=== PATIENT | female | born 1965 | race Caucasian/White ===

== ENCOUNTER 2017-11-23 09:45 | Emergency (ER) | payer OTHER ==
[~2017-11-23] VITALS: Ht 170.2 cm; Wt 85.0 kg
[2017-11-23 09:50] VITALS: PULSE 94; RESP 16; TEMP 98; O2SAT 99
[2017-11-23] MEDS ORDERED: SODIUM CHLOR 0.9% 1000 ML INJ 1,000 ML IV SCH (12:47)
--- NOTE | 2017-11-23 12:53 | PD ---
HPI Chief Complaint: GI Complaint Time Seen by Provider: 12:21 Travel History International Travel<30 days: No Contact w/Intl Traveler<30days: No Traveled to known affect area: No History of Present Illness HPI 32-year-old female presents the ED for evaluation of 12 hour history of right upper quadrant abdominal pain, nausea, vomiting. Onset last night after eating dinner. Rated 7/10, waxing and waning. No alleviating or exacerbating factors reported. Patient endorses oral temperature 100.1 last week. She denies melena , hematochezia, constipation or diarrhea. She denies alcohol use. She states that she has a history of gallstones. She states that she has a preoperative appointment with a general surgeon at the end of the month. She denies chronic health problems. No treatment attempted at home. PFSH Past Medical History Thyroid Disease: Yes Influenza Vaccination: No ?: Not Past Surgical History Abdominal Surgery: Yes (HERNIA REPAIR) Social History Alcohol Use: No Tobacco Use: No Substance Use: No Allergies-Medications (Allergen,Severity, Reaction): Coded Allergies: codeine (Verified Allergy, Mild, NAUSEA, 11/23/17) Review of Systems Except as stated in HPI: all other systems reviewed are Neg Physical Exam Narrative GENERAL: Well-nourished, nontoxic-appearing white female no acute distress. SKIN: Focused skin assessment warm/dry. HEAD: Atraumatic. Normocephalic. EYES: Pupils equal and round. No scleral icterus. No injection or drainage. ENT: No nasal bleeding or discharge. Mucous membranes pink and moist. NECK: Trachea midline. No JVD. CARDIOVASCULAR: Regular rate and rhythm. No murmur appreciated. RESPIRATORY: No accessory muscle use. Clear to auscultation. Breath sounds equal bilaterally. GASTROINTESTINAL: Abdomen soft, nondistended. Hepatic and splenic margins not palpable. Tender to palpation in the right upper quadrant and epigastric region. Active bowel sounds. MUSCULOSKELETAL: No obvious deformities. No clubbing. No cyanosis. No edema. NEUROLOGICAL: Awake and alert. No obvious cranial nerve deficits. Motor grossly within normal limits. Normal speech. PSYCHIATRIC: Appropriate mood and affect; insight and judgment normal. Data Data Last Documented VS Vital Signs Date Time Temp Pulse Resp B/P (MAP) Pulse Ox O2 Delivery O2 Flow Rate FiO2 11/23/17 15:25 65 16 133/ 96 Room Air 11/23/17 09:50 98.0 Orders Orders Complete Blood Count With Diff (11/23/17 12:47) Comprehensive Metabolic Panel (11/23/17 12:47) Lipase (11/23/17 12:47) Lactic Acid (11/23/17 12:47) Prothrombin Time / Inr (Pt) (11/23/17 12:47) Act Partial Throm Time (Ptt) (11/23/17 12:47) Urinalysis - C+S If Indicated (11/23/17 12:47) Us Abdomen Gallbladder (11/23/17 ) Iv Access Insert/Monitor (11/23/17 12:47) Ecg Monitoring (11/23/17 12:47) Oximetry (11/23/17 12:47) NPO (11/23/17 12:47) Morphine Inj (Morphine Inj) (11/23/17 13:00) Sodium Chlor 0.9% 1000 Ml Inj (Ns 1000 M (11/23/17 12:47) Sodium Chloride 0.9% Flush (Ns Flush) (11/23/17 13:00) Ondansetron Odt (Zofran Odt) (11/23/17 13:00) Ed Discharge Order (11/23/17 15:11) Labs Laboratory Tests Test 11/23/17 13:09 11/23/17 14:08 White Blood Count 11.4 TH/MM3 Red Blood Count 4.38 MIL/MM3 Hemoglobin 11.8 GM/DL Hematocrit 36.7 % Mean Corpuscular Volume 83.8 FL Mean Corpuscular Hemoglobin 26.9 PG Mean Corpuscular Hemoglobin Concent 32.1 % Red Cell Distribution Width 15.8 % Platelet Count 350 TH/MM3 Mean Platelet Volume 8.2 FL Neutrophils (%) (Auto) 74.1 % Lymphocytes (%) (Auto) 18.6 % Monocytes (%) (Auto) 5.2 % Eosinophils (%) (Auto) 1.5 % Basophils (%) (Auto) 0.6 % Neutrophils # (Auto) 8.4 TH/MM3 Lymphocytes # (Auto) 2.1 TH/MM3 Monocytes # (Auto) 0.6 TH/MM3 Eosinophils # (Auto) 0.2 TH/MM3 Basophils # (Auto) 0.1 TH/MM3 CBC Comment DIFF FINAL Differential Comment Prothrombin Time 9.7 SEC Prothromb Time International Ratio 1.0 RATIO Activated Partial Thromboplast Time 24.9 SEC Blood Urea Nitrogen 15 MG/DL Creatinine 0.76 MG/DL Random Glucose 83 MG/DL Total Protein 7.8 GM/DL Albumin 3.8 GM/DL Calcium Level 8.9 MG/DL Alkaline Phosphatase 155 U/L Aspartate Amino Transf (AST/SGOT) 21 U/L Alanine Aminotransferase (ALT/SGPT) 41 U/L Total Bilirubin 0.2 MG/DL Sodium Level 140 MEQ/L Potassium Level 3.5 MEQ/L Chloride Level 106 MEQ/L Carbon Dioxide Level 25.7 MEQ/L Anion Gap 8 MEQ/L Estimat Glomerular Filtration Rate 80 ML/MIN Lactic Acid Level 0.8 mmol/L Lipase 124 U/L Urine Color Straw Urine Turbidity CLEAR Urine pH 7.0 Urine Specific [place] 1.008 Urine Protein NEG mg/dL Urine Glucose (UA) NEG mg/dL Urine Ketones NEG mg/dL Urine Occult Blood NEG Urine Nitrite NEG Urine Bilirubin NEG Urine Urobilinogen LESS THAN 2 mg/dL Urine Leukocyte Esterase NEG Urine WBC LESS THAN 1 /hpf Urine Squamous Epithelial Cells 1 /hpf Urine Bacteria RARE /hpf Microscopic Urinalysis Comment CULT NOT INDICATED MDM Medical Decision Making Medical Screen Exam Complete: Yes Emergency Medical Condition: Yes Differential Diagnosis Choledocholithiasis versus cholecystitis versus GERD versus pancreatitis versus other Narrative Course 32-year-old female with PMH of gallstones presents the ED for evaluation of 12 hour history of right upper quadrant abdominal pain, nausea, vomiting. Waxing and waning, currently rated 6/10. Patient reports last episode of vomiting was a few nights ago. She states that she has elective cholecystectomy scheduled early next month. Vitals reviewed. Physical exam reveals some tenderness in the right upper quadrant but is otherwise unremarkable. IV was established. Patient was ministered 1 L normal saline, 4 mg Zofran 4 mg morphine IV. CBC: WBC 11.4, hemoglobin 11.8. Coags: INR 1.0. CMP: BUN 15, creatinine 0.76. Bilirubin 0.2. AST 21, ALT 41. Lactic acid 0.8. Lipase 124 UA: No culture indicated. Ultrasound gallbladder reveals cholelithiasis without definitive sonographic evidence for acute cholecystitis. On recheck the patient reports improvement of her symptoms. I discussed the results of the workup, recommended that the patient follow through with her plan for elective cholecystectomy. She is instructed to call her surgeon tomorrow for follow-up, return for worsening symptoms. She indicated understanding of instructions and is agreeable to care plan. The patient is stable and discharged home. Diagnosis Primary Impression: Cholelithiasis Qualified Codes: K80.20 - Calculus of gallbladder without cholecystitis without obstruction Referrals: General Surgeon Patient Instructions: Diet for Stomach Ulcers and Gastritis (ED), General Instructions Additional Instructions: Rest, hydrate. Avoid fatty meals as this can worsen gallbladder pain. Follow-up with the general surgeon as planned. Return to the ED for worsening symptoms or any urgent or emergent medical condition. Disposition: 01 DISCHARGE HOME Condition: Stable Prudence Tsai Nov 23, 2017 12:53
[2017-11-23] MEDS ORDERED: MORPHINE SULFATE 4 MG/ML INJ IV PUSH ONE (13:00)
[2017-11-23] MEDS ORDERED: SODIUM CHLORIDE 0.9% FLUSH 10 ML FLUSH IV FLUSH PRN (13:00)
[2017-11-23] MEDS ORDERED: ONDANSETRON ODT 4 MG TAB PO ONE (13:00)
[2017-11-23 13:24] LABS: AUTOMATED NEUTROPHIL # 8.4 TH/MM3 (1.8-7.7); BASOPHIL # 0.1 TH/MM3 (0-0.2); BASOPHIL % 0.6 % (0.0-2.0); EOSINOPHIL # 0.2 TH/MM3 (0-0.4); EOSINOPHIL % 1.5 % (0.0-4.0); HEMATOCRIT 36.7 % (35.0-46.0); HEMOGLOBIN 11.8 GM/DL (11.6-15.3); LYMPH % 18.6 % (9.0-44.0); LYMPHOCYTE # 2.1 TH/MM3 (1.0-4.8); MEAN CELL VOLUME 83.8 FL (80.0-100.0); MEAN CORPUSCULAR HEMOGLOBIN 26.9 PG (27.0-34.0); MEAN CORPUSCULAR HGB CONC 32.1 % (32.0-36.0); MEAN PLATELET VOLUME 8.2 FL (7.0-11.0); MONO % 5.2 % (0.0-8.0); MONOCYTE # 0.6 TH/MM3 (0-0.9); NEUT % 74.1 % (16.0-70.0); PLATELET COUNT 350 TH/MM3 (150-450); RED BLOOD COUNT 4.38 MIL/MM3 (4.00-5.30); RED CELL DISTRIBUTION WIDTH 15.8 % (11.6-17.2); WHITE BLOOD COUNT 11.4 TH/MM3 (4.0-11.0)
[2017-11-23 13:36] LABS: PROTHROMBIN TIME - PATIENT 9.7 SEC (9.8-11.6)
[2017-11-23 13:48] LABS: ALBUMIN 3.8 GM/DL (3.4-5.0); ALT (GPT) 41 U/L (10-53); AST (GOT) 21 U/L (15-37); BICARBONATE 25.7 MEQ/L (21.0-32.0); BLOOD UREA NITROGEN 15 MG/DL (7-18); CALCIUM 8.9 MG/DL (8.5-10.1); CHLORIDE 106 MEQ/L (98-107); CREATININE 0.76 MG/DL (0.50-1.00); GLOMERULAR FILTRATION RATE 80 ML/MIN (>89); GLUCOSE,RANDOM 83 MG/DL (74-106); SODIUM (NA) 140 MEQ/L (136-145)
[2017-11-23 13:51] LABS: ALKALINE PHOSPHATASE 155 U/L (45-117); TOTAL BILIRUBIN ADULT 0.2 MG/DL (0.2-1.0); TOTAL PROTEIN 7.8 GM/DL (6.4-8.2)
--- NOTE | 2017-11-23 14:27 | RADRPT ---
EXAM DATE: 11/23/2017 1:55 PM EDT AGE/SEX: 52 years / Female INDICATIONS: Previously diagnosed gallstones. Right upper quadrant pain. CLINICAL DATA: This is the patient's initial encounter. Patient reports that signs and/or symptoms h ave been present for 2 days and indicates a pain score of 7/10. MEDICAL/SURGICAL HISTORY: Hiatal hernia. . COMPARISON: No prior exams available for comparison. MEASUREMENTS: Liver:__ 15.1 cm. Common Bile Duct:__ 6mm. FINDINGS: Liver: Normal echotexture without focal lesion or ductal dilatation. Portal Vein: Hepatopedal flow seen in portal vein. Common Duct: No intraluminal mass or stone visualized. Gallbladder: Demonstrates no wall thickening or pericholecystic fluid. Multiple shadowing gallstones visualized. Pancreas: Not well visualized. Right Kidney: Normal echotexture and cortical thickness. No mass or hydronephrosis. Other: None. CONCLUSION: 1. Cholelithiasis without definitive sonographic evidence for acute cholecystitis. Electronically signed by: Jesse Beard MD 11/23/2017 2:26 PM EDT
[2017-11-23 15:13] LABS: BACTERIA, URINE RARE /hpf; BILIRUBIN, URINE NEG (NEG); BLOOD, URINE NEG (NEG); GLUCOSE,URINE NEG (NEG); KETONE, URINE NEG (NEG); NITRITE,URINE NEG (NEG); SQUAMOUS EPITHELIAL CELL URINE 1 /hpf (0-5); URINE COLOR Straw (YELLW/STRAW); URINE LEUKOCYTE ESTERASE NEG (NEG)
[2017-11-23 15:25] VITALS: BP_SYST 133; PULSE 65; RESP 16; O2SAT 96
== END 2017-11-23 15:58 | disposition home or self-care (01) ==
LOC: NEPD 09:45
DX: K80.20 Calculus of gallbladder without cholecystitis without obstruction (principal); R10.11 Right upper quadrant pain; R11.2 Nausea with vomiting, unspecified; E07.9 Disorder of thyroid, unspecified; Z88.5 Allergy status to narcotic agent
CPT/HCPCS: 76705; 80053; 81001; 83605; 83690; 85025; 85610; 85730; 96374; 99284; J2270; J7030

== ENCOUNTER 2018-01-14 18:01 | Observation (INO) ==
[2018-01-14] MEDS ORDERED: Acetaminophen 325 MG Tablet PO ONE (19:24)
[2018-01-14] MEDS ORDERED: Sod Chloride 0.9% Inj 400 ML IV.SIG SCH (19:30)
[2018-01-14] MEDS ORDERED: Sod Chloride 0.9% Inj 1,000 ML IV.SIG SCH ×2 (19:30)
[2018-01-14 19:42] LABS: Baso # (Auto) 0.1 th/mm3 (0.0-0.2); Baso % (Auto) 0.9 % (0.0-2.0); Eos # (Auto) 0.2 th/mm3 (0.0-0.4); Eos % (Auto) 2.6 % (0.0-4.0); Hematocrit 37.9 % (35.0-46.0); Hemoglobin 12.8 gm/dL (11.6-15.3); Lymph # (Auto) 1.6 th/mm3 (1.0-4.8); Lymph % (Auto) 18.8 % (9.0-44.0); Mean Corpuscular HGB Conc 33.7 % (32.0-36.0); Mean Corpuscular Hemoglobin 28.5 pg (27.0-34.0); Mean Corpuscular Volume 84.6 fL (80.0-100.0); Mean Platelet Volume 7.5 fL (7.0-11.0); Mono # (Auto) 0.8 th/mm3 (0.0-0.9); Mono % (Auto) 9.6 % (0.0-8.0); Neut # (Auto) 5.7 th/mm3 (1.8-7.7); Neut % (Auto) 68.1 % (16.0-70.0); Platelet Count 345 th/mm3 (150-450); Red Blood Count 4.48 mil/mm3 (4.00-5.30); Red Cell Distribution Width 15.4 % (11.6-17.2); White Blood Count 8.4 th/mm3 (4.0-11.0)
[2018-01-14 19:46] LABS: Activated Partial Thrombo Time 24.7 sec (24.3-30.1); Prothrombin Time 9.9 sec (9.8-11.6)
[2018-01-14 19:57] LABS: Albumin 3.8 g/dL (3.4-5.0); Anion Gap 9 meq/L (5-15); Aspartate Aminotransferase 25 U/L (15-37); Blood Urea Nitrogen 21 mg/dL (7-18); Calcium 8.9 mg/dL (8.5-10.1); Carbon Dioxide 23.4 meq/L (21.0-32.0); Chloride 106 meq/L (98-107); Glomerular Filtration Rate 56 mL/min (>89); Glucose,Random 104 mg/dL (74-106); Magnesium 2.1 mg/dL (1.5-2.5); Potassium 3.7 meq/L (3.5-5.1); Sodium 138 meq/L (136-145)
[2018-01-14 20:02] LABS: Alanine Aminotransferase 43 U/L (10-53); Alkaline Phosphatase 182 U/L (45-117); Total Protein 7.9 g/dL (6.4-8.2)
--- NOTE | 2018-01-14 20:02 | XR ---
EXAM DATE: 01/14/2018 7:54 PM EDT AGE/SEX: 52 years / Female INDICATIONS: Fever returning from 1 week ago with cough for one week. CLINICAL DATA: This is the patient's sequela encounter. Patient reports that signs and symptoms have been present for 3 weeks and indicates a pain score of 0/10. MEDICAL/SURGICAL HISTORY: None. None. [place] [facility] [place]. . FINDINGS: A single AP view of the chest demonstrates the lungs to be symmetrically aerated without evidence of mass, infiltrate or effusion. The cardiomediastinal contours are unremarkable. Osseous structures a re intact with mild scoliosis. Multiple surgical clips are again noted projected over the lower neck and upper mediastinum. CONCLUSION: No acute cardiopulmonary disease. There is no evidence of pneumonia. Electronically signed by: Reji Zepeda MD 01/14/2018 8:01 PM EDT
[2018-01-14 20:27] LABS: Bacteria,Urine Rare /hpf; Bilirubin,Urine Negative (Negative); Clarity,Urine Hazy (Clear); Color,Urine Yellow (Yellw/Straw); Glucose,Urine (UA) Negative (Negative); Leukocyte Esterase,Urine Small (Negative); Nitrite,Urine Negative (Negative); Specific Gravity,Urine 1.024 (1.002-1.035); Squamous Epithelial Cell,Urine 1 /hpf (0-5)
--- NOTE | 2018-01-14 20:39 | ED ---
HPI General Chief Complaint: Respiratory Symptoms Stated Complaint: respiratory Time Seen by Provider: 01/14/18 19:12 Source: patient, RN notes reviewed and old records reviewed Mode of arrival: ambulatory Limitations: no limitations History of Present Illness HPI Narrative: The patient is a 52-year-old female status post cholecystectomy on December 28 presenting with complaint of persistent cough for 1-1/2 weeks and on and off fevers. Fever today was 101.4 she went to an urgent care they checked it again was 101.8 and they advised to come to the emergency department when she was found to have a temp of 100.4 persistent nonproductive cough. The patient was seen here for fever and fatigue on 01/02/2018 after her surgery by Dr. Erickson and had a workup for a temperature of 102.7 that was unremarkable. She reports fatigue cough no congestion no nausea vomiting abdominal pain dysuria diarrhea or flank pain. She was discharged on Augmentin which she is currently taken for diagnosis of fever of unknown origin. MD Complaint: fever, cough and sore throat Onset (ago): week(s) (1.5) Duration: constant Severity: moderate Relieving factors: NSAID Able to tolerate fluids by mouth: Yes Associated symptoms: fever, chills and sore throat Treatments prior to arrival: ibuprofen Related Data Home Medications Medication Instructions Recorded Confirmed amitriptyline 75 mg PO DAILY 12/24/17 01/14/18 levothyroxine 175 mcg PO DAILY 12/24/17 01/14/18 paroxetine HCl 10 mg PO HS 12/24/17 01/14/18 ketorolac 10 mg PO Q6H PRN 01/02/18 01/14/18 Previous Rx's Medication Instructions Recorded amoxicillin-pot clavulanate 1 tab PO Q12H #20 tab 01/02/18 [Augmentin] ondansetron HCl [Zofran] 4 mg PO Q6H PRN #15 tab 01/02/18 Allergies Allergy/AdvReac Type Severity Reaction Status Date / Time codeine Allergy Mild NAUSEA Verified 01/14/18 18:29 Iodinated Contrast- Oral and AdvReac Nausea/Vomi Verified 01/14/18 18:29 IV Dye ting [Contrast] Review of Systems ROS: all other systems reviewed are negative [facility] Medical History Medical History Gallstone (Acute) Hx of thyroidectomy (Acute) Hypothyroidism (Acute) Migraines (Acute) Surgical History Surgical History History of esophagogastroduodenoscopy (EGD) (Acute) History of umbilical hernia repair (Acute) Hx of colonoscopy with polypectomy (Acute) Social History Social History Substance History: No History of Abuse Second Hand Smoke Exposure: No Smoking Status: Never smoker How Often Do You Have a Drink Containing Alcohol: Never Recent Travel in [facility] within the Last 8 Weeks: No Recent Out of Country Travel within the Last 8 Weeks: No Immunization History Tetanus Immunization: <5 Years Hx Influenza Vaccine This Season: No Exam Narrative Exam Narrative: GENERAL: Alert and oriented in no distress not appearing toxic SKIN: Focused skin assessment warm/dry. HEAD: Atraumatic. Normocephalic. EYES: Pupils equal and round. No scleral icterus. No injection or drainage. ENT: No nasal bleeding or discharge. Mucous membranes pink and moist. NECK: Trachea midline. No JVD. CARDIOVASCULAR: tachycardia w/ regular rhythm. No murmur appreciated. RESPIRATORY: No accessory muscle use. Clear to auscultation. Breath sounds equal bilaterally. GASTROINTESTINAL: Abdomen soft, non-tender, nondistended. Hepatic and splenic margins not palpable. MUSCULOSKELETAL: No obvious deformities. No clubbing. No cyanosis. No edema. NEUROLOGICAL: Awake and alert. No obvious cranial nerve deficits. Motor grossly within normal limits. Normal speech. PSYCHIATRIC: Appropriate mood and affect; insight and judgment normal. Course Hospital Course: Patient's the patient met SIRS criteria on arrival with a pulse of 111 temperature 100.2. She has a lactic acidosis of 2.1 without WBC elevation or bandemia. Mild BUN elevation of 21 with a creatinine of 1.03 liver enzymes mildly elevated with an alk phos of 182. Serologies were negative for influenza. Chest x-ray was unremarkable. She did receive cefepime and fluids per sepsis protocol repeat temperature at 8:50 PM was 98.8 with stable blood pressure and resolution of her tachycardia with a resting heart rate of 92 bpm at this time. Reevaluation(s) Reevaluation #1: Resting comfortably no distress afebrile and non-tachycardic not appearing septic. Mentation intact capillary refill within normal limits. Time: 20:50 Initial Documented Vital Signs Temperature 100.2 F H 01/14/18 18:16 Pulse Rate 125 H 01/14/18 18:16 Respiratory Rate 20 01/14/18 18:16 Blood Pressure 118/73 01/14/18 18:16 Pulse Oximetry 99 01/14/18 18:16 Last Documented Vital Signs Temperature 98.8 F 01/14/18 20:49 Pulse Rate 94 H 01/14/18 20:49 Respiratory Rate 16 01/14/18 20:49 Blood Pressure 158/59 H 01/14/18 20:49 Pulse Oximetry 100 01/14/18 20:49 Critical Care Time Critical Care Time: Yes Total Critical Care Time: 30 Attestation: Aggregate critical care time was 30 minutes. Time to perform other separately billable procedures was not included in the critical care time. My time did not include minutes spent treating any other patients simultaneously or on activities that did not directly contribute to the patient's treatment. The services I provided to this patient were to treat and/or prevent clinically significant deterioration that could result in: Respiratory failure, permanent disability, I provided critical care services requiring my management, as noted below: Chart data review, documentation time, medication orders and management, vital sign assessments/reviewing monitor data, ordering and reviewing lab tests, ordering and interpreting/reviewing x-rays and diagnostic studies, care of the patient and discussion of the patient with the admitting physicians. Medical Decision Making MDM Narrative Medical decision making narrative: Patient with fever of unknown origin and findings suggestive of sepsis. Blood cultures have been obtained she was started on broad-spectrum antibiotics for coverage of possible upper respiratory pathogen as well as intra-abdominal. She did not have any abdominal pain or discomfort. She did have a recent CT of the abdomen and pelvis was also unremarkable. Will admit for further evaluation of her febrile disease. Possibly viral. We started the patient on cefepime since she was inpatient in the beginning of the month for her surgery and was seen here again to cover for possible hospital -acquired pneumonia. She was already on Augmentin as an outpatient with out any relief of her symptoms. Medical Screen Exam Complete: Yes Emergency Medical Condition: Yes Lab Data Lab results reviewed: Yes I reviewed the patient's lab results. Result diagrams: 01/14/18 19:30 01/14/18 19:30 Lab Results 01/14/18 01/14/18 01/14/18 Range/Units 19:30 19:30 19:30 WBC 8.4 (4.0-11.0) th/mm3 RBC 4.48 (4.00-5.30) mil/mm3 Hgb 12.8 (11.6-15.3) gm/dL Hct 37.9 (35.0-46.0) % MCV 84.6 (80.0-100.0) fL MCH 28.5 (27.0-34.0) pg MCHC 33.7 (32.0-36.0) % RDW 15.4 (11.6-17.2) % Plt Count 345 (150-450) th/mm3 MPV 7.5 (7.0-11.0) fL Neut % (Auto) 68.1 (16.0-70.0) % Lymph % (Auto) 18.8 (9.0-44.0) % Ellis % (Auto) 9.6 H (0.0-8.0) % Eos % (Auto) 2.6 (0.0-4.0) % Baso % (Auto) 0.9 (0.0-2.0) % Neut # (Auto) 5.7 (1.8-7.7) th/mm3 Lymph # (Auto) 1.6 (1.0-4.8) th/mm3 Ellis # (Auto) 0.8 (0.0-0.9) th/mm3 Eos # (Auto) 0.2 (0.0-0.4) th/mm3 Baso # (Auto) 0.1 (0.0-0.2) th/mm3 WBC Differential . Differential Comment Auto diff final PT 9.9 (9.8-11.6) sec INR 1.0 Ratio APTT 24.7 (24.3-30.1) sec Sodium 138 (136-145) meq/L Potassium 3.7 (3.5-5.1) meq/L Chloride 106 (98-107) meq/L Carbon Dioxide 23.4 (21.0-32.0) meq/L Anion Gap 9 (5-15) meq/L BUN 21 H (7-18) mg/dL Creatinine 1.03 H (0.50-1.00) mg/dL Estimated GFR 56 L (>89) mL/min Random Glucose 104 (74-106) mg/dL Lactic Acid (0.4-2.0) mmol/L Calcium 8.9 (8.5-10.1) mg/dL Magnesium 2.1 (1.5-2.5) mg/dL Total Bilirubin 0.2 (0.2-1.0) mg/dL AST 25 (15-37) U/L ALT 43 (10-53) U/L Alkaline Phosphatase 182 H (45-117) U/L Troponin I Less than 0.02 L (0.02-0.05) ng/mL Total Protein 7.9 (6.4-8.2) g/dL Albumin 3.8 (3.4-5.0) g/dL Urine Color (Yellw/Straw) Urine Clarity (Clear) Urine pH (5.0-8.5) Ur Specific [place] (1.002-1.035) Urine Protein (Neg-Trace) mg/dL Urine Glucose (UA) (Negative) mg/dL Urine Ketones (Negative) mg/dL Urine Occult Blood (Negative) Urine Nitrate (Negative) Urine Bilirubin (Negative) Urine Urobilinogen (Less than 2) mg/dL Ur Leukocyte Esterase (Negative) Urine WBC (0-5) /hpf Ur Squamous Epith Cells (0-5) /hpf Urine Bacteria (None) /hpf Micro UA Comment Urine Culture Comments 01/14/18 01/14/18 Range/Units 19:30 19:50 WBC (4.0-11.0) th/mm3 RBC (4.00-5.30) mil/mm3 Hgb (11.6-15.3) gm/dL Hct (35.0-46.0) % MCV (80.0-100.0) fL MCH (27.0-34.0) pg MCHC (32.0-36.0) % RDW (11.6-17.2) % Plt Count (150-450) th/mm3 MPV (7.0-11.0) fL Neut % (Auto) (16.0-70.0) % Lymph % (Auto) (9.0-44.0) % Ellis % (Auto) (0.0-8.0) % Eos % (Auto) (0.0-4.0) % Baso % (Auto) (0.0-2.0) % Neut # (Auto) (1.8-7.7) th/mm3 Lymph # (Auto) (1.0-4.8) th/mm3 Ellis # (Auto) (0.0-0.9) th/mm3 Eos # (Auto) (0.0-0.4) th/mm3 Baso # (Auto) (0.0-0.2) th/mm3 WBC Differential Differential Comment PT (9.8-11.6) sec INR Ratio APTT (24.3-30.1) sec Sodium (136-145) meq/L Potassium (3.5-5.1) meq/L Chloride (98-107) meq/L Carbon Dioxide (21.0-32.0) meq/L Anion Gap (5-15) meq/L BUN (7-18) mg/dL Creatinine (0.50-1.00) mg/dL Estimated GFR (>89) mL/min Random Glucose (74-106) mg/dL Lactic Acid 2.1 H (0.4-2.0) mmol/L Calcium (8.5-10.1) mg/dL Magnesium (1.5-2.5) mg/dL Total Bilirubin (0.2-1.0) mg/dL AST (15-37) U/L ALT (10-53) U/L Alkaline Phosphatase (45-117) U/L Troponin I (0.02-0.05) ng/mL Total Protein (6.4-8.2) g/dL Albumin (3.4-5.0) g/dL Urine Color Yellow (Yellw/Straw) Urine Clarity Hazy H (Clear) Urine pH 5.0 (5.0-8.5) Ur Specific [place] 1.024 (1.002-1.035) Urine Protein Negative (Neg-Trace) mg/dL Urine Glucose (UA) Negative (Negative) mg/dL Urine Ketones Negative (Negative) mg/dL Urine Occult Blood Negative (Negative) Urine Nitrate Negative (Negative) Urine Bilirubin Negative (Negative) Urine Urobilinogen Less than 2 (Less than 2) mg/dL Ur Leukocyte Esterase Small H (Negative) Urine WBC 2 (0-5) /hpf Ur Squamous Epith Cells 1 (0-5) /hpf Urine Bacteria Rare H (None) /hpf Micro UA Comment Culture not ind Urine Culture Comments Culture not ind Imaging Data Radiologist's impression: Chest X-Ray 01/14/18 19:24 CONCLUSION: No acute cardiopulmonary disease. There is no evidence of pneumonia. ECG Data Attestation: I personally reviewed and interpreted this ECG as follows: Prior ECG tracings: available for review Interpretation: Sinus tachycardia heart rate 106 incomplete right bundle branch block nonspecific ST T-wave abnormalities flipped T waves on V2-V3 compared from previous EKG morphology is the same rate is now increased from 99 to 106bpm Discharge Plan Discharge Disposition Patient Disposition: 30 Still Patient Discharge Condition Condition: Good Discharge Details Diagnosis: Acidosis, lactic, Sepsis, Pneumonia Physicians Team ED Provider: Domingo Loera Primary Care Provider: UNKNOWN, Rxs /Orders / Referrals /Forms Prescriptions: No Action levothyroxine 175 mcg Tablet 175 mcg PO DAILY RF: 0 paroxetine HCl 10 mg Tablet 10 mg PO HS RF: 0 amitriptyline 75 mg Tablet 75 mg PO DAILY RF: 0 ketorolac 10 mg Tablet 10 mg PO Q6H PRN (Reason: Pain) RF: 0 amoxicillin-pot clavulanate [Augmentin] 875-125 mg tablet 1 tab PO Q12H Qty: 20 RF: 0 ondansetron HCl [Zofran] 4 mg tablet 4 mg PO Q6H PRN (Reason: nausea and vomiting) Qty: 15 RF: 0 Status ED Status: With Doctor
[2018-01-14] MEDS ORDERED: Acetaminophen 325 MG Tablet PO PRN (20:59)
[2018-01-14] MEDS: Senna/Docusate Sodium 8.6/50 MG Tablet PO SCH (21:28)
[2018-01-14] MEDS ORDERED: guaiFENesin/Dextromethorphan 200 MG/20 MG 10 ML UDC PO ONE (23:34)
[2018-01-15 02:31] LABS: Bilirubin,Urine Negative (Negative); Clarity,Urine Clear (Clear); Color,Urine Straw (Yellw/Straw); Glucose,Urine (UA) Negative (Negative); Leukocyte Esterase,Urine Negative (Negative); Nitrite,Urine Negative (Negative); Specific Gravity,Urine 1.008 (1.002-1.035); Squamous Epithelial Cell,Urine 1 /hpf (0-5)
[2018-01-15] MEDS: Levothyroxine 100 MCG Tablet PO SCH (06:05)
[2018-01-15] MEDS: Levothyroxine 75 MCG Tablet PO SCH (06:05)
[2018-01-15 06:53] LABS: Calcium 8.3 mg/dL (8.5-10.1); Carbon Dioxide 20.3 meq/L (21.0-32.0); Potassium 3.8 meq/L (3.5-5.1)
[2018-01-15 06:55] LABS: Baso # (Auto) 0.1 th/mm3 (0.0-0.2); Baso % (Auto) 1.2 % (0.0-2.0); Eos # (Auto) 0.2 th/mm3 (0.0-0.4); Eos % (Auto) 4.3 % (0.0-4.0); Hematocrit 34.1 % (35.0-46.0); Hemoglobin 11.2 gm/dL (11.6-15.3); Lymph # (Auto) 1.4 th/mm3 (1.0-4.8); Lymph % (Auto) 23.6 % (9.0-44.0); Mean Corpuscular HGB Conc 32.8 % (32.0-36.0); Mean Corpuscular Hemoglobin 27.9 pg (27.0-34.0); Mean Corpuscular Volume 85.2 fL (80.0-100.0); Mean Platelet Volume 7.6 fL (7.0-11.0); Mono # (Auto) 0.6 th/mm3 (0.0-0.9); Mono % (Auto) 10.4 % (0.0-8.0); Neut # (Auto) 3.5 th/mm3 (1.8-7.7); Neut % (Auto) 60.5 % (16.0-70.0); Platelet Count 305 th/mm3 (150-450); Red Blood Count 4.01 mil/mm3 (4.00-5.30); Red Cell Distribution Width 15.1 % (11.6-17.2); White Blood Count 5.7 th/mm3 (4.0-11.0)
--- NOTE | 2018-01-15 09:09 | XR ---
EXAM DATE: 01/15/2018 9:00 AM EDT AGE/SEX: 52 years / Female INDICATIONS: . Cough. CLINICAL DATA: This is the patient's subsequent encounter. Patient reports that signs and symptoms h ave been present for 2 days and indicates a pain score of 0/10. MEDICAL/SURGICAL HISTORY: . Hypothyroidism. . Cholecystectomy. Umbilical hernia repair. Thyro idectomy. COMPARISON: [facility], CHEST 1V SINGLE AP, 01/14/2018. . FINDINGS: PA and lateral views of the chest demonstrate the lungs to be symmetrically aerated without evidence of mass, infiltrate or effusion. The cardiomediastinal contours are unremarkable. Osseous structures are intact. Surgical clips in the lower midline neck. Surgical clips in the right upper quadrant of t he abdomen. CONCLUSION: No acute cardiopulmonary disease identified. Electronically signed by: Elder Aaron MD 01/15/2018 9:07 AM EDT
[2018-01-15] MEDS: Senna/Docusate Sodium 8.6/50 MG Tablet PO SCH ×3 (09:44→21:28)
--- NOTE | 2018-01-15 10:10 | P.HP ---
<CarterbrookeManju W - Last Filed: 01/15/18 19:18> History of Present Illness Primary Care Physician: UNKNOWN Chief Complaint: Fever and cough History of Present Illness: This a 52-year-old female patient with a past medical history which includes hypothyroidism, GERD and recent cholecystectomy December [address] Erickson. Patient reports postoperatively she had a fever for 11 days which resolved on its own. Then for approximately the past week she has been having fevers as high as 102.0 associated with a barking dry cough and hoarse voice. Patient had been given Augmentin on an outpatient basis with persistent symptoms. 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 Past medical history Hypothyroidism, GERD Past surgical history cholecystectomy December 28, 2017, colonoscopy, EGD with biopsy, polypectomy Social history denies EtOH use or tobacco use Family medical history reviewed and noncontributory - Diagnosis (1) Elevated temperature Review of Systems All other systems reviewed negative except as stated in HPI [facility] - History History Provided By: Patient - Medical History Medical History: Medical History (Last Reviewed 01/14/18 @ 20:37 by Domingo Loera DO) Gallstone Hx of thyroidectomy Hypothyroidism Migraines - Surgical History Surgical History: Surgical History (Last Reviewed 01/14/18 @ 20:37 by Domingo Loera DO) History of esophagogastroduodenoscopy (EGD) History of umbilical hernia repair Hx of colonoscopy with polypectomy - Tobacco History Second Hand Smoke Exposure: No Tobacco Use In Past 30 Days: No Smoking Status: Never smoker - Alcohol History How Often Do You Have a Drink Containing Alcohol: Never - Substance Use History Substance History: No History of Abuse - Travel History Recent Travel in the [place] Within the Last 8 Weeks: No Recent Travel Out of the Country Within the Last 8 Weeks: No - Immunization History Tetanus Immunization: <5 Years Hx Influenza Vaccine This Season: No Medications and Allergies Allergies Allergy/AdvReac Type Severity Reaction Status Date / Time codeine Allergy Mild NAUSEA Verified 01/14/18 18:29 Iodinated Contrast- Oral and AdvReac Nausea/Vomi Verified 01/14/18 18:29 IV Dye ting [Contrast] Home Medications Medication Instructions Recorded Confirmed Type amitriptyline 75 mg PO DAILY 12/24/17 01/14/18 History levothyroxine 175 mcg PO DAILY 12/24/17 01/14/18 History paroxetine HCl 10 mg PO HS 12/24/17 01/14/18 History ketorolac 10 mg PO Q6H PRN 01/02/18 01/14/18 History Active Medications: Active Medications Acetaminophen (Tylenol) 650 mg PO Q4H PRN PRN Reason: Temp > 100.4 Al Hydroxide/Mg Hydroxide (Milk Of Magnnaomi Liq) 30 ml PO Q12H PRN PRN Reason: Mild Constipation Amitriptyline HCl (Elavil) 75 mg PO DAILY [facility] Last Admin: 01/15/18 09:44 Dose: 75 mg Sodium Chloride (Ns Inj) 1,000 mls @ 0 mls/hr IV.SIG .Q0M [facility] Last Infusion: 01/14/18 21:44 Dose: Infused Sodium Chloride (Ns Inj) 1,000 mls @ 0 mls/hr IV.SIG .Q0M [facility] Last Infusion: 01/14/18 21:45 Dose: Infused Sodium Chloride (Ns Inj) 400 mls @ 0 mls/hr IV.SIG .Q0M [facility] Last Infusion: 01/14/18 21:45 Dose: Infused Levothyroxine Sodium (Synthroid) 100 mcg PO DAILY@0600 [facility] Last Admin: 01/15/18 06:05 Dose: 100 mcg Levothyroxine Sodium (Synthroid) 75 mcg PO DAILY@0600 [facility] Last Admin: 01/15/18 06:05 Dose: 75 mcg Miscellaneous (Pill Splitter) 1 each OTHER UNSCH PRN PRN Reason: SEE LABEL COMMENTS Ondansetron HCl (Zofran Inj) 4 mg IV.PUSH Q6H PRN PRN Reason: NAUSEA OR VOMITING Paroxetine HCl (Paxil) 10 mg PO [facility] Senna/Docusate Sodium (Brandee-Colace) 1 tab PO BID [facility] Last Admin: 01/15/18 09:46 Dose: Not Given Exam Vital signs: Vital Signs 01/14/18 18:16 01/14/18 19:24 01/14/18 19:34 Temperature 100.2 F H Pulse Rate 125 H 111 H Respiratory Rate 20 16 Blood Pressure 118/73 160/97 H Pulse Oximetry 99 97 98 01/14/18 20:49 01/14/18 22:43 01/15/18 00:00 Temperature 98.8 F 98.4 F 98.0 F Pulse Rate 94 H 85 85 Respiratory Rate 16 16 16 Blood Pressure 158/59 H 112/73 115/88 Pulse Oximetry 100 99 99 01/15/18 04:00 01/15/18 07:18 Temperature 97.6 F 97.9 F Pulse Rate 82 84 Respiratory Rate 16 18 Blood Pressure 124/79 118/74 Pulse Oximetry 99 98 Intake & Output 01/14/18 01/15/18 01/15/18 18:59 06:59 18:59 Intake Total 3420 / 3420 Balance 3420 / 3420 Weight 80.739 kg 80.4 kg Intake: IV 2500 / 2500 Maxipime Inj 2,000 MG In NS Inj 100 / 100 100 ML @ 200 mls/hr IV.SIG STAT STA Rx#:[id number] NS Inj 400 ML @ Wide Open IV. 2400 / 2400 SIG .Q0M HIGINIO Rx#:[id number] Oral 920 / 920 Other: # Voids 2 Weight On Admission 80.739 kg Narrative: GENERAL: This is a well-nourished, well-developed patient, in no apparent distress. CARDIOVASCULAR: Regular rate and rhythm RESPIRATORY: Clear to auscultation. Breath sounds equal bilaterally. GASTROINTESTINAL: Abdomen soft, non-tender, nondistended. Normal active bowel sounds MUSCULOSKELETAL: Extremities without clubbing, cyanosis, or edema. NEURO: Alert & Oriented x4 to person, place, time, situation. Moves all ext x4 Results - Labs CBC & Chem 7: 01/15/18 05:15 01/15/18 05:15 Labs: Laboratory Results - last 24 hr 01/14/18 01/14/18 01/14/18 19:30 19:30 19:30 WBC 8.4 RBC 4.48 Hgb 12.8 Hct 37.9 MCV 84.6 MCH 28.5 MCHC 33.7 RDW 15.4 Plt Count 345 MPV 7.5 Neut % (Auto) 68.1 Lymph % (Auto) 18.8 Mora % (Auto) 9.6 H Eos % (Auto) 2.6 Baso % (Auto) 0.9 Neut # (Auto) 5.7 Lymph # (Auto) 1.6 Mora # (Auto) 0.8 Eos # (Auto) 0.2 Baso # (Auto) 0.1 WBC Differential . Differential Comment Auto diff final PT 9.9 INR 1.0 APTT 24.7 Sodium 138 Potassium 3.7 Chloride 106 Carbon Dioxide 23.4 Anion Gap 9 BUN 21 H Creatinine 1.03 H Estimated GFR 56 L Random Glucose 104 Lactic Acid Calcium 8.9 Magnesium 2.1 Total Bilirubin 0.2 AST 25 ALT 43 Alkaline Phosphatase 182 H Troponin I Less than 0.02 L Total Protein 7.9 Albumin 3.8 Urine Color Urine Clarity Urine pH Ur Specific [place] Urine Protein Urine Glucose (UA) Urine Ketones Urine Occult Blood Urine Nitrate Urine Bilirubin Urine Urobilinogen Ur Leukocyte Esterase Urine WBC Ur Squamous Epith Cells Urine Bacteria Micro UA Comment Urine Culture Comments 01/14/18 01/14/18 01/14/18 19:30 19:50 22:22 WBC RBC Hgb Hct MCV MCH MCHC RDW Plt Count MPV Neut % (Auto) Lymph % (Auto) Mora % (Auto) Eos % (Auto) Baso % (Auto) Neut # (Auto) Lymph # (Auto) Mora # (Auto) Eos # (Auto) Baso # (Auto) WBC Differential Differential Comment PT INR APTT Sodium Potassium Chloride Carbon Dioxide Anion Gap BUN Creatinine Estimated GFR Random Glucose Lactic Acid 2.1 H 1.1 Calcium Magnesium Total Bilirubin AST ALT Alkaline Phosphatase Troponin I Total Protein Albumin Urine Color Yellow Urine Clarity Hazy H Urine pH 5.0 Ur Specific [place] 1.024 Urine Protein Negative Urine Glucose (UA) Negative Urine Ketones Negative Urine Occult Blood Negative Urine Nitrate Negative Urine Bilirubin Negative Urine Urobilinogen Less than 2 Ur Leukocyte Esterase Small H Urine WBC 2 Ur Squamous Epith Cells 1 Urine Bacteria Rare H Micro UA Comment Culture not ind Urine Culture Comments Culture not ind 01/15/18 01/15/18 01/15/18 02:15 05:15 05:15 WBC 5.7 RBC 4.01 Hgb 11.2 L Hct 34.1 L MCV 85.2 MCH 27.9 MCHC 32.8 RDW 15.1 Plt Count 305 MPV 7.6 Neut % (Auto) 60.5 Lymph % (Auto) 23.6 Mora % (Auto) 10.4 H Eos % (Auto) 4.3 H Baso % (Auto) 1.2 Neut # (Auto) 3.5 Lymph # (Auto) 1.4 Mora # (Auto) 0.6 Eos # (Auto) 0.2 Baso # (Auto) 0.1 WBC Differential . Differential Comment Auto diff final PT INR APTT Sodium 143 Potassium 3.8 Chloride 112 H Carbon Dioxide 20.3 L Anion Gap 11 BUN 15 Creatinine 0.78 Estimated GFR 77 L Random Glucose 101 Lactic Acid Calcium 8.3 L Magnesium Total Bilirubin AST ALT Alkaline Phosphatase Troponin I Total Protein Albumin Urine Color Straw Urine Clarity Clear Urine pH 6.0 Ur Specific [place] 1.008 Urine Protein Negative Urine Glucose (UA) Negative Urine Ketones Negative Urine Occult Blood Negative Urine Nitrate Negative Urine Bilirubin Negative Urine Urobilinogen Less than 2 Ur Leukocyte Esterase Negative Urine WBC Less than 1 Ur Squamous Epith Cells 1 Urine Bacteria Micro UA Comment Culture not ind Urine Culture Comments Culture not ind - Imaging Impressions Chest X-Ray 01/14/18 19:24 CONCLUSION: No acute cardiopulmonary disease. There is no evidence of pneumonia. Chest X-Ray 01/15/18 08:00 CONCLUSION: No acute cardiopulmonary disease identified. Caprini VTE Risk Assessment Caprini VTE Risk Assessment: No/Low Risk (score <= 1) Caprini Risk Assessment Model: Point Value = 1 Point Value = 2 Point Value = 3 Point Value = 5 Age 41-60 Minor surgery BMI > 25 kg/m2 Swollen legs Varicose veins or History of unexplained or recurrent spontaneous Oral contraceptives or hormone replacement Sepsis (< 1 month) Serious lung disease, including pneumonia (< 1 month) Abnormal pulmonary function Acute myocardial infarction Congestive heart failure (< 1 month) History of inflammatory bowel disease Medical patient at bed rest Age 61-74 Arthroscopic surgery Major open surgery (> 45 min) Laparoscopic surgery (> 45 min) Malignancy Confined to bed (> 72 hours) Immobilizing plaster cast Central venous access Age >= 75 History of VTE Family history of VTE Factor V Leiden Prothrombin [id number] Lupus anticoagulant Anticardiolipin antibodies Elevated serum homocysteine Heparin-induced thrombocytopenia Other congenital or acquired thrombophilia Stroke (< 1 month) Elective arthroplasty Hip, pelvis, or leg fracture Acute spinal cord injury (< 1 month) Prophylaxis Regimen: Total Risk Factor Score Risk Level Prophylaxis Regimen 0-1 Low Early ambulation 2 Moderate Order ONE of the following: *Sequential Compression Device (SCD) *Heparin 5000 units SQ BID 3-4 Higher Order ONE of the following medications: *Heparin 5000 units SQ TID *Enoxaparin/Lovenox 40 mg SQ daily (WT < 150 kg, CrCl > 30 mL/min) *Enoxaparin/Lovenox 30 mg SQ daily (WT < 150 kg, CrCl > 10-29 mL/min) *Enoxaparin/Lovenox 30 mg SQ BID (WT < 150 kg, CrCl > 30 mL/min) AND/OR *Sequential Compression Device (SCD) 5 or more Highest Order ONE of the following medications: *Heparin 5000 units SQ TID (Preferred with Epidurals) *Enoxaparin/Lovenox 40 mg SQ daily (WT < 150 kg, CrCl > 30 mL/min) *Enoxaparin/Lovenox 30 mg SQ daily (WT < 150 kg, CrCl > 10-29 mL/min) *Enoxaparin/Lovenox 30 mg SQ BID (WT < 150 kg, CrCl > 30 mL/min) AND *Sequential Compression Device (SCD) Assessment and Plan - Assessment (1) Elevated temperature Code(s): R50.9 - Fever, unspecified Status: Acute Plan: This a 52-year-old female patient with a past medical history which includes hypothyroidism, GERD and recent cholecystectomy December [address] Erickson. Patient reports postoperatively she had a fever for 11 days which resolved on its own. Then for approximately the past week she has been having fevers as high as 102.7 associated with a barking dry cough and hoarse voice. Patient had been given Augmentin on an outpatient basis with persistent symptoms. 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 CT scan abdomen/pelvis with IV contrast January 02, 2018 reviewed and reveals cholecystectomy changes without evidence of abscess or other acute complication MRCP January 07, 2018 done at [facility] conclusion essentially unremarkable study. Elevated temperature likely due to upper respiratory infection viral syndrome and dehydration Cough consistent with bronchospasm On arrival to the emergency department patient's temperature was 100.2 patient has remained afebrile since that point White blood cell count 8.4 repeat 5.7 no elevation in neutrophil Lactic acid 2.1 on admission repeat after hydration 1.1 likely due to dehydration rather than sepsis Elevated BUN of 21 with creatinine of 1.03 after hydration BUN 15 and 0.78 also likely due to dehydration Urinalysis reviewed negative leukocyte esterase negative protein negative nitrates no culture indicated Chest X-Ray 01/14/18 No acute cardiopulmonary disease. There is no evidence of pneumonia. Chest X-Ray 01/15/18 No acute cardiopulmonary disease identified. Blood cultures 2 obtained and pending Influenza A and B negative Patient given cefepime 2 g IV in the ER, will give additional cefepime 2 g IV Robitussin AC for cough add Solu Medrol 60 mg IV BID Hypothyroidism continue patient's home levothyroxine 175 mcg p.o. daily Anxiety/depression Continue patient's home amitriptyline 75 mg daily and Paxil 10 mg p.o. nightly DVT prophylaxis with SCDs <Washington Alexander - Last Filed: 01/16/18 13:40> History of Present Illness Primary Care Physician: UNKNOWN - Diagnosis (1) Elevated temperature PMFSH - Medical History Medical History: Medical History (Last Reviewed 01/14/18 @ 20:37 by Domingo Loera DO) Gallstone Hx of thyroidectomy Hypothyroidism Migraines - Surgical History Surgical History: Surgical History (Last Reviewed 01/14/18 @ 20:37 by Domingo Loera DO) History of esophagogastroduodenoscopy (EGD) History of umbilical hernia repair Hx of colonoscopy with polypectomy Medications and Allergies Active Medications: Active Medications Acetaminophen (Tylenol) 650 mg PO Q4H PRN PRN Reason: Temp > 100.4 Al Hydroxide/Mg Hydroxide (Milk Of Magnesia Liq) 30 ml PO Q12H PRN PRN Reason: Mild Constipation Albuterol (Duoneb Neb (Prn)) 1 ampul NEB Q2HR NEB PRN PRN Reason: SHORTNESS OF BREATH/WHEEZING Albuterol (Duoneb Neb (Higinio)) 1 ampul NEB Q4HR NEB HIGINIO Last Admin: 01/16/18 13:19 Dose: 1 ampul Amitriptyline HCl (Elavil) 75 mg PO DAILY [facility] Last Admin: 01/16/18 08:21 Dose: 75 mg Guaifenesin/Codeine Phosphate (Robitussin Ac 200/20 Mg/10 Ml Liq) 10 ml PO Q4H PRN PRN Reason: COUGH Last Admin: 01/16/18 08:22 Dose: 10 ml Levothyroxine Sodium (Synthroid) 100 mcg PO DAILY@0600 [facility] Last Admin: 01/16/18 06:05 Dose: 100 mcg Levothyroxine Sodium (Synthroid) 75 mcg PO DAILY@0600 [facility] Last Admin: 01/16/18 06:05 Dose: 75 mcg Methylprednisolone Sodium Succinate (Solumedrol Inj) 60 mg IV.PUSH Q12H [facility] Last Admin: 01/16/18 08:21 Dose: 60 mg Miscellaneous (Pill Splitter) 1 each OTHER UNSCH PRN PRN Reason: SEE LABEL COMMENTS Ondansetron HCl (Zofran Inj) 4 mg IV.PUSH Q6H PRN PRN Reason: NAUSEA OR VOMITING Paroxetine HCl (Paxil) 10 mg PO [facility] Last Admin: 01/15/18 21:28 Dose: 10 mg Senna/Docusate Sodium (Brandee-Colace) 1 tab PO BID [facility] Last Admin: 01/16/18 08:24 Dose: Not Given Exam Vital signs: Vital Signs 01/15/18 16:00 01/15/18 20:13 01/15/18 20:14 Temperature 98.1 F Pulse Rate 88 95 H Respiratory Rate 16 16 Blood Pressure 118/78 Pulse Oximetry 98 100 01/15/18 21:28 01/15/18 23:17 01/16/18 00:00 Temperature 98.4 F 98.1 F Pulse Rate 107 H 98 H 81 Respiratory Rate 20 16 18 Blood Pressure 121/84 118/78 Pulse Oximetry 98 98 01/16/18 03:14 01/16/18 04:00 01/16/18 07:34 Temperature 98.1 F 97.7 F Pulse Rate 94 H 102 H 103 H Respiratory Rate 16 18 18 Blood Pressure 114/70 108/73 Pulse Oximetry 96 98 01/16/18 07:49 01/16/18 12:00 Temperature 97.4 F L Pulse Rate 110 H Respiratory Rate 16 16 Blood Pressure 129/79 Pulse Oximetry 96 Intake & Output 01/15/18 01/16/18 01/16/18 18:59 06:59 18:59 Intake Total 100 / 100 Balance 100 / 100 Intake: IV 100 / 100 Maxipime Inj 2,000 MG In NS Inj 100 / 100 100 ML @ 200 mls/hr IV.SIG ONCE ONE Rx#:[id number] Other: Date of Last Bowel Movement 01/15/18 Results - Labs CBC & Chem 7: 01/15/18 05:15 01/15/18 05:15 Caprini VTE Risk Assessment Caprini Risk Assessment Model: Point Value = 1 Point Value = 2 Point Value = 3 Point Value = 5 Age 41-60 Minor surgery BMI > 25 kg/m2 Swollen legs Varicose veins or History of unexplained or recurrent spontaneous Oral contraceptives or hormone replacement Sepsis (< 1 month) Serious lung disease, including pneumonia (< 1 month) Abnormal pulmonary function Acute myocardial infarction Congestive heart failure (< 1 month) History of inflammatory bowel disease Medical patient at bed rest Age 61-74 Arthroscopic surgery Major open surgery (> 45 min) Laparoscopic surgery (> 45 min) Malignancy Confined to bed (> 72 hours) Immobilizing plaster cast Central venous access Age >= 75 History of VTE Family history of VTE Factor V Leiden Prothrombin [id number] Lupus anticoagulant Anticardiolipin antibodies Elevated serum homocysteine Heparin-induced thrombocytopenia Other congenital or acquired thrombophilia Stroke (< 1 month) Elective arthroplasty Hip, pelvis, or leg fracture Acute spinal cord injury (< 1 month) Prophylaxis Regimen: Total Risk Factor Score Risk Level Prophylaxis Regimen 0-1 Low Early ambulation 2 Moderate Order ONE of the following: *Sequential Compression Device (SCD) *Heparin 5000 units SQ BID 3-4 Higher Order ONE of the following medications: *Heparin 5000 units SQ TID *Enoxaparin/Lovenox 40 mg SQ daily (WT < 150 kg, CrCl > 30 mL/min) *Enoxaparin/Lovenox 30 mg SQ daily (WT < 150 kg, CrCl > 10-29 mL/min) *Enoxaparin/Lovenox 30 mg SQ BID (WT < 150 kg, CrCl > 30 mL/min) AND/OR *Sequential Compression Device (SCD) 5 or more Highest Order ONE of the following medications: *Heparin 5000 units SQ TID (Preferred with Epidurals) *Enoxaparin/Lovenox 40 mg SQ daily (WT < 150 kg, CrCl > 30 mL/min) *Enoxaparin/Lovenox 30 mg SQ daily (WT < 150 kg, CrCl > 10-29 mL/min) *Enoxaparin/Lovenox 30 mg SQ BID (WT < 150 kg, CrCl > 30 mL/min) AND *Sequential Compression Device (SCD) Assessment and Plan - Assessment (1) Elevated temperature Code(s): R50.9 - Fever, unspecified Status: Acute - Attending Attestation Patient examined. Assessment and plan formulated with Manju ANTONIO I agree with the above.
--- NOTE | 2018-01-15 16:13 | ECG ---
Date Performed: 01/14/2018 Time Performed: 19:54:34 PTAGE: 52 years EKG: SINUS TACHYCARDIA INCOMPLETE RIGHT BUNDLE BRANCH BLOCK ST DEVIATION AND MODERATE T-WAVE ABN ORMALITY, CONSIDER ANTERIOR ISCHEMIA ABNORMAL ECG NO PREVIOUS TRACING DOCTOR: Timmy Abad Interpretating Date/Time 01/15/2018 16:12:39
--- NOTE | 2018-01-15 18:51 | P.PNIM ---
Physical Exam Vital signs: Vital Signs 01/14/18 19:24 01/14/18 19:34 01/14/18 20:49 Temperature 98.8 F Pulse Rate 111 H 94 H Respiratory Rate 16 16 Blood Pressure 160/97 H 158/59 H Pulse Oximetry 97 98 100 01/14/18 22:43 01/15/18 00:00 01/15/18 04:00 Temperature 98.4 F 98.0 F 97.6 F Pulse Rate 85 85 82 Respiratory Rate 16 16 16 Blood Pressure 112/73 115/88 124/79 Pulse Oximetry 99 99 99 01/15/18 07:18 01/15/18 12:00 01/15/18 16:00 Temperature 97.9 F 98.1 F 98.1 F Pulse Rate 84 95 H 88 Respiratory Rate 18 16 16 Blood Pressure 118/74 118/84 118/78 Pulse Oximetry 98 96 98 Intake & Output 01/14/18 01/15/18 01/15/18 18:59 06:59 18:59 Intake Total 3420 / 3420 Balance 3420 / 3420 Weight 80.739 kg 80.4 kg Intake: IV 2500 / 2500 Maxipime Inj 2,000 MG In NS Inj 100 / 100 100 ML @ 200 mls/hr IV.SIG STAT STA Rx#:[id number] NS Inj 400 ML @ Wide Open IV. 2400 / 2400 SIG .Q0M JESSICA Rx#:[id number] Oral 920 / 920 Other: # Voids 2 Date of Last Bowel Movement 01/15/18 Weight On Admission 80.739 kg Results - Labs CBC & Chem 7: 01/15/18 05:15 01/15/18 05:15 Laboratory Results - last 24 hr 01/14/18 01/14/18 01/14/18 19:30 19:30 19:30 WBC 8.4 RBC 4.48 Hgb 12.8 Hct 37.9 MCV 84.6 MCH 28.5 MCHC 33.7 RDW 15.4 Plt Count 345 MPV 7.5 Neut % (Auto) 68.1 Lymph % (Auto) 18.8 [place] % (Auto) 9.6 H Eos % (Auto) 2.6 Baso % (Auto) 0.9 Neut # (Auto) 5.7 Lymph # (Auto) 1.6 [place] # (Auto) 0.8 Eos # (Auto) 0.2 Baso # (Auto) 0.1 WBC Differential . Differential Comment Auto diff final PT 9.9 INR 1.0 APTT 24.7 Sodium 138 Potassium 3.7 Chloride 106 Carbon Dioxide 23.4 Anion Gap 9 BUN 21 H Creatinine 1.03 H Estimated GFR 56 L Random Glucose 104 Lactic Acid Calcium 8.9 Magnesium 2.1 Total Bilirubin 0.2 AST 25 ALT 43 Alkaline Phosphatase 182 H Troponin I Less than 0.02 L Total Protein 7.9 Albumin 3.8 Urine Color Urine Clarity Urine pH Ur Specific [place] Urine Protein Urine Glucose (UA) Urine Ketones Urine Occult Blood Urine Nitrate Urine Bilirubin Urine Urobilinogen Ur Leukocyte Esterase Urine WBC Ur Squamous Epith Cells Urine Bacteria Micro UA Comment Urine Culture Comments 01/14/18 01/14/18 01/14/18 19:30 19:50 22:22 WBC RBC Hgb Hct MCV MCH MCHC RDW Plt Count MPV Neut % (Auto) Lymph % (Auto) [place] % (Auto) Eos % (Auto) Baso % (Auto) Neut # (Auto) Lymph # (Auto) [place] # (Auto) Eos # (Auto) Baso # (Auto) WBC Differential Differential Comment PT INR APTT Sodium Potassium Chloride Carbon Dioxide Anion Gap BUN Creatinine Estimated GFR Random Glucose Lactic Acid 2.1 H 1.1 Calcium Magnesium Total Bilirubin AST ALT Alkaline Phosphatase Troponin I Total Protein Albumin Urine Color Yellow Urine Clarity Hazy H Urine pH 5.0 Ur Specific [place] 1.024 Urine Protein Negative Urine Glucose (UA) Negative Urine Ketones Negative Urine Occult Blood Negative Urine Nitrate Negative Urine Bilirubin Negative Urine Urobilinogen Less than 2 Ur Leukocyte Esterase Small H Urine WBC 2 Ur Squamous Epith Cells 1 Urine Bacteria Rare H Micro UA Comment Culture not ind Urine Culture Comments Culture not ind 01/15/18 01/15/18 01/15/18 02:15 05:15 05:15 WBC 5.7 RBC 4.01 Hgb 11.2 L Hct 34.1 L MCV 85.2 MCH 27.9 MCHC 32.8 RDW 15.1 Plt Count 305 MPV 7.6 Neut % (Auto) 60.5 Lymph % (Auto) 23.6 [place] % (Auto) 10.4 H Eos % (Auto) 4.3 H Baso % (Auto) 1.2 Neut # (Auto) 3.5 Lymph # (Auto) 1.4 [place] # (Auto) 0.6 Eos # (Auto) 0.2 Baso # (Auto) 0.1 WBC Differential . Differential Comment Auto diff final PT INR APTT Sodium 143 Potassium 3.8 Chloride 112 H Carbon Dioxide 20.3 L Anion Gap 11 BUN 15 Creatinine 0.78 Estimated GFR 77 L Random Glucose 101 Lactic Acid Calcium 8.3 L Magnesium Total Bilirubin AST ALT Alkaline Phosphatase Troponin I Total Protein Albumin Urine Color Straw Urine Clarity Clear Urine pH 6.0 Ur Specific [place] 1.008 Urine Protein Negative Urine Glucose (UA) Negative Urine Ketones Negative Urine Occult Blood Negative Urine Nitrate Negative Urine Bilirubin Negative Urine Urobilinogen Less than 2 Ur Leukocyte Esterase Negative Urine WBC Less than 1 Ur Squamous Epith Cells 1 Urine Bacteria Micro UA Comment Culture not ind Urine Culture Comments Culture not ind Microbiology 01/14/18 19:25 Blood - Peripheral Aerobic Blood Culture - Preliminary No growth in 1 day 01/14/18 19:25 Blood - Peripheral Anaerobic Blood Culture - Preliminary No growth in 1 day 01/14/18 19:30 Blood - Peripheral Aerobic Blood Culture - Preliminary No growth in 1 day 01/14/18 19:30 Blood - Peripheral Anaerobic Blood Culture - Preliminary No growth in 1 day 01/14/18 19:50 Nasal Wash Influenza Types A,B Antigen - Final Negative for FLU A and B antigen Infection due to influenza A or B cannot be ruled out since the antigen present in the sample may be below the detection limit of the test. - Imaging Impressions Chest X-Ray 01/14/18 19:24 CONCLUSION: No acute cardiopulmonary disease. There is no evidence of pneumonia. Chest X-Ray 01/15/18 08:00 CONCLUSION: No acute cardiopulmonary disease identified. Assessment and Plan - Assessment (1) Elevated temperature Code(s): R50.9 - Fever, unspecified Status: Acute Plan: This a 52-year-old female patient with a past medical history which includes hypothyroidism, GERD and recent cholecystectomy December [address] Erickson. Patient reports postoperatively she had a fever for 11 days which resolved on its own. Then for approximately the past week she has been having fevers as high as 102.7 associated with a barking dry cough and hoarse voice. Patient had been given Augmentin on an outpatient basis with persistent symptoms. CT scan abdomen/pelvis with IV contrast January 02, 2018 reviewed and reveals cholecystectomy changes without evidence of abscess or other acute complication MRCP January 07, 2018 done at [facility] conclusion essentially unremarkable study. Elevated temperature likely due to upper respiratory infection possibly viral syndrome and dehydration On arrival to the emergency department patient's temperature was 100.2 patient has remained afebrile since that point White blood cell count 8.4 repeat 5.7 no elevation in neutrophil Lactic acid 2.1 on admission repeat after hydration 1.1 likely due to dehydration rather than sepsis Elevated BUN of 21 with creatinine of 1.03 after hydration BUN 15 and 0.78 also likely due to dehydration Urinalysis reviewed negative leukocyte esterase negative protein negative nitrates no culture indicated Chest X-Ray 01/14/18 No acute cardiopulmonary disease. There is no evidence of pneumonia. Chest X-Ray 01/15/18 No acute cardiopulmonary disease identified. Blood cultures 2 obtained and pending Influenza A and B negative Patient given cefepime 2 g IV in the ER [facility] for cough Hypothyroidism continue patient's home levothyroxine 175 mcg p.o. daily Anxiety/depression Continue patient's home amitriptyline 75 mg daily and Paxil 10 mg p.o. nightly DVT prophylaxis with SCDs
[2018-01-15] MEDS: guaiFENesin/Codeine Syrup 200 MG/20 MG 10 ML UDC PO PRN (21:20)
[2018-01-15] MEDS: MethylPREDNISolone Sod Succinate Inj 125 MG/2 ML Vial IV.PUSH SCH (21:27)
[2018-01-16] MEDS: guaiFENesin/Codeine Syrup 200 MG/20 MG 10 ML UDC PO PRN ×4 (02:56→23:33)
[2018-01-16] MEDS: Levothyroxine 100 MCG Tablet PO SCH (06:05)
[2018-01-16] MEDS: Levothyroxine 75 MCG Tablet PO SCH (06:05)
[2018-01-16] MEDS: MethylPREDNISolone Sod Succinate Inj 125 MG/2 ML Vial IV.PUSH SCH ×3 (08:21→20:38)
[2018-01-16] MEDS: Senna/Docusate Sodium 8.6/50 MG Tablet PO SCH ×2 (08:24→20:37)
[2018-01-16] MEDS ORDERED: Non-Formulary Drug (Levothyroxine [Levothyroxine] 175 MCG) PO SCH (09:00)
--- NOTE | 2018-01-16 13:47 | P.PNIM ---
Subjective Interval history: No fever. Pt has a harsh disruptive paroxysmal cough. Pt c/o pleuritic chest pain with cough. Physical Exam Vital signs: 01/16/18 07:49 01/16/18 12:00 Temperature 97.4 F L Pulse Rate 110 H Respiratory Rate 16 16 Blood Pressure 129/79 Pulse Oximetry 96 Narrative: GENERAL: This is a well-nourished, well-developed patient, in no apparent distress. CARDIOVASCULAR: Regular rate and rhythm without murmurs, gallops, or rubs. RESPIRATORY: Clear to auscultation. Breath sounds equal bilaterally. No wheezes , rales, or rhonchi. GASTROINTESTINAL: Abdomen soft, non-tender, nondistended. Normal active bowel sounds MUSCULOSKELETAL: Extremities without clubbing, cyanosis, or edema. NEURO: Alert & Oriented x4 to person, place, time, situation. Moves all ext x4 Results - Labs CBC & Chem 7: 01/15/18 05:15 01/15/18 05:15 Microbiology 01/14/18 19:25 Blood - Peripheral Aerobic Blood Culture - Preliminary No growth in 2 days 01/14/18 19:25 Blood - Peripheral Anaerobic Blood Culture - Preliminary No growth in 2 days 01/14/18 19:30 Blood - Peripheral Aerobic Blood Culture - Preliminary No growth in 2 days 01/14/18 19:30 Blood - Peripheral Anaerobic Blood Culture - Preliminary No growth in 2 days - Imaging Chest X-Ray 01/14/18 19:24 CONCLUSION: No acute cardiopulmonary disease. There is no evidence of pneumonia. Chest X-Ray 01/15/18 08:00 CONCLUSION: No acute cardiopulmonary disease identified. Assessment and Plan - Assessment (1) Elevated temperature Code(s): R50.9 - Fever, unspecified Status: Acute Plan: This a 52-year-old female patient with a past medical history which includes hypothyroidism, GERD and recent cholecystectomy December [address] Erickson. Patient reports postoperatively she had a fever for 11 days which resolved on its own. Then for approximately the past week she has been having fevers as high as 102.7 associated with a barking dry cough and hoarse voice. Patient had been given Augmentin on an outpatient basis with persistent symptoms. 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 CT scan abdomen/pelvis with IV contrast January 02, 2018 reviewed and reveals cholecystectomy changes without evidence of abscess or other acute complication MRCP January 07, 2018 done at [facility] conclusion essentially unremarkable study. Elevated temperature likely due to upper respiratory infection viral syndrome and dehydration Cough consistent with bronchospasm On arrival to the emergency department patient's temperature was 100.2 patient has remained afebrile since that point White blood cell count 8.4 repeat 5.7 no elevation in neutrophil Lactic acid 2.1 on admission repeat after hydration 1.1 likely due to dehydration rather than sepsis Elevated BUN of 21 with creatinine of 1.03 after hydration BUN 15 and 0.78 also likely due to dehydration Urinalysis reviewed negative leukocyte esterase negative protein negative nitrates no culture indicated Chest X-Ray 01/14/18 No acute cardiopulmonary disease. There is no evidence of pneumonia. Chest X-Ray 01/15/18 No acute cardiopulmonary disease identified. Blood cultures 2 (01/14/18) --> NGTD Influenza A and B negative - cefepime 2g IV (01/14 - present) - increase solumedrol to q6h &q2h prn - prn Robitussin AC - continue duonebs - anticipate d/c to home in 1-2 days - repeat CXR in AM - SCDs for supportive care - supportive care Hypothyroidism continue patient's home levothyroxine 175 mcg p.o. daily Anxiety/depression Continue patient's home amitriptyline 75 mg daily and Paxil 10 mg p.o. nightly DVT prophylaxis with SCDs
[2018-01-16] MEDS: Phenol 1.4% 180 ML Spray Bottle OROPHARYNG PRN (14:34)
[2018-01-17] MEDS: MethylPREDNISolone Sod Succinate Inj 125 MG/2 ML Vial IV.PUSH SCH ×4 (02:43→21:57)
[2018-01-17] MEDS: Levothyroxine 100 MCG Tablet PO SCH (05:55)
[2018-01-17] MEDS: Levothyroxine 75 MCG Tablet PO SCH (05:55)
[2018-01-17] MEDS ORDERED: Ibuprofen 400 MG Tablet PO ONE (07:39)
--- NOTE | 2018-01-17 07:45 | P.PNIM ---
Subjective Interval history: Patient continues to have dry nonproductive cough, slightly better than yesterday also c/o headache and reports that at home she takes her amitriptyline at night to prevent headaches Physical Exam Vital signs: Vital Signs 01/16/18 07:49 01/16/18 12:00 01/16/18 13:30 Temperature 97.4 F L Pulse Rate 110 H Respiratory Rate 16 16 16 Blood Pressure 129/79 Pulse Oximetry 96 01/16/18 15:35 01/16/18 16:08 01/16/18 19:20 Temperature 98.2 F Pulse Rate 118 H 110 H 104 H Respiratory Rate 18 16 18 Blood Pressure 119/71 Pulse Oximetry 97 01/16/18 19:44 01/16/18 21:25 01/16/18 23:15 Temperature 98.2 F Pulse Rate 121 H 85 Respiratory Rate 22 20 18 Blood Pressure 113/72 Pulse Oximetry 96 01/16/18 23:41 01/17/18 02:47 01/17/18 03:13 Temperature 98.0 F Pulse Rate 114 H 106 H Respiratory Rate 20 20 18 Blood Pressure 137/66 Pulse Oximetry 95 01/17/18 04:00 Temperature 97.6 F Pulse Rate 95 H Respiratory Rate 19 Blood Pressure 118/67 Pulse Oximetry 96 Intake & Output 01/16/18 01/17/18 01/17/18 18:59 06:59 18:59 Intake Total 200 / 200 300 / 300 Balance 200 / 200 300 / 300 Intake: IV 200 / 200 300 / 300 Ofirmev Inj 1,000 mg In 100 ml 100 / 100 200 / 200 @ 400 mls/hr IV.SIG Q6H JESSICA Rx# :[id number] Maxipime Inj 2,000 MG In NS Inj 100 / 100 100 / 100 100 ML @ 200 mls/hr IV.SIG Q12H JESSICA Rx#:[id number] Narrative: GENERAL: This is a well-nourished, well-developed patient, in no apparent distress. CARDIOVASCULAR: Regular rate and rhythm RESPIRATORY: Clear to auscultation. Breath sounds equal bilaterally. No wheezes , rales, or rhonchi. GASTROINTESTINAL: Abdomen soft, non-tender, nondistended. Normal active bowel sounds MUSCULOSKELETAL: Extremities without clubbing, cyanosis, or edema. NEURO: Alert & Oriented x4 to person, place, time, situation. Moves all ext x4 Results - Labs CBC & Chem 7: 01/15/18 05:15 01/15/18 05:15 Microbiology 01/14/18 19:25 Blood - Peripheral Aerobic Blood Culture - Preliminary No growth in 2 days 01/14/18 19:25 Blood - Peripheral Anaerobic Blood Culture - Preliminary No growth in 2 days 01/14/18 19:30 Blood - Peripheral Aerobic Blood Culture - Preliminary No growth in 2 days 01/14/18 19:30 Blood - Peripheral Anaerobic Blood Culture - Preliminary No growth in 2 days Assessment and Plan - Assessment (1) Elevated temperature Code(s): R50.9 - Fever, unspecified Status: Acute Plan: This a 52-year-old female patient with a past medical history which includes hypothyroidism, GERD and recent cholecystectomy December [address] Erickson. Patient reports postoperatively she had a fever for 11 days which resolved on its own. Then for approximately the past week she has been having fevers as high as 102.7 associated with a barking dry cough and hoarse voice. Patient had been given Augmentin on an outpatient basis with persistent symptoms. 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 CT scan abdomen/pelvis with IV contrast January 02, 2018 reviewed and reveals cholecystectomy changes without evidence of abscess or other acute complication MRCP January 07, 2018 done at [facility] conclusion essentially unremarkable study. Elevated temperature likely due to upper respiratory infection viral syndrome and dehydration Cough consistent with bronchospasm On arrival to the emergency department patient's temperature was 100.2 patient has remained afebrile since that point White blood cell count 8.4 repeat 5.7 no elevation in neutrophil Lactic acid 2.1 on admission repeat after hydration 1.1 likely due to dehydration rather than sepsis Elevated BUN of 21 with creatinine of 1.03 after hydration BUN 15 and 0.78 also likely due to dehydration Urinalysis reviewed negative leukocyte esterase negative protein negative nitrates no culture indicated Chest X-Ray 01/14/18 No acute cardiopulmonary disease. There is no evidence of pneumonia. Chest X-Ray 01/15/18 No acute cardiopulmonary disease identified. Blood cultures 2 (01/14/18) --> NGTD Influenza A and B negative - cefepime 2g IV (01/14 - 01/17) - continue solu medrol scheduled & prn - prn Robitussin AC - Tessalon pearls scheduled x 2 days - add budesonide NEB - continue duonebs - repeat CXR (01/17) No acute abnormality or significant interval change. - SCDs for supportive care - supportive care Hypothyroidism continue patient's home levothyroxine 175 mcg p.o. daily Anxiety/depression Headache Continue patient's home amitriptyline 75 mg daily and Paxil 10 mg p.o. nightly DVT prophylaxis with SCDs
[2018-01-17] MEDS: Senna/Docusate Sodium 8.6/50 MG Tablet PO SCH ×2 (08:07→21:56)
--- NOTE | 2018-01-17 08:29 | XR ---
EXAM DATE: 01/17/2018 8:03 AM EDT AGE/SEX: 52 years / Female INDICATIONS: Cough. CLINICAL DATA: This is the patient's subsequent encounter. Patient reports that signs and symptoms h ave been present for 3 weeks and indicates a pain score of 0/10. MEDICAL/SURGICAL HISTORY: . Hypothyroidism Thyroidectomy. COMPARISON: [facility] [place], CHEST 2V PA&LAT, 01/15/2018. . FINDINGS: No new focal pleural or parenchymal opacities cardiomegaly mediastinal contours are within normal downing its. Redemonstration of surgical clips overlying the central cervicothoracic junction. Osseous struct ures are intact. CONCLUSION: 1. No acute abnormality or significant interval change. Electronically signed by: Jesse Beard MD 01/17/2018 8:28 AM EDT
[2018-01-17] MEDS: guaiFENesin/Codeine Syrup 200 MG/20 MG 10 ML UDC PO PRN (12:13)
[2018-01-17] MEDS: Benzonatate 100 MG Capsule PO SCH ×2 (14:39→21:57)
[2018-01-18] MEDS: MethylPREDNISolone Sod Succinate Inj 125 MG/2 ML Vial IV.PUSH SCH ×4 (03:32→20:45)
[2018-01-18] MEDS: guaiFENesin/Codeine Syrup 200 MG/20 MG 10 ML UDC PO PRN ×4 (03:40→20:52)
[2018-01-18] MEDS: Benzonatate 100 MG Capsule PO SCH ×3 (06:06→22:22)
[2018-01-18] MEDS: Levothyroxine 100 MCG Tablet PO SCH (06:07)
[2018-01-18] MEDS: Levothyroxine 75 MCG Tablet PO SCH (06:07)
[2018-01-18] MEDS: Senna/Docusate Sodium 8.6/50 MG Tablet PO SCH ×2 (08:20→20:45)
--- NOTE | 2018-01-18 09:40 | P.PNIM ---
Subjective Interval history: Patient reports she was able to sleep 2 hours last night uninterrupted by cough feel that cough is getting a little better Physical Exam Vital signs: Vital Signs 01/17/18 11:45 01/17/18 12:00 01/17/18 14:53 Temperature 97.9 F Pulse Rate 98 H 118 H 103 H Respiratory Rate 15 16 16 Blood Pressure 144/80 H Pulse Oximetry 98 01/17/18 15:46 01/17/18 19:34 01/17/18 21:30 Temperature 97.7 F 98.3 F Pulse Rate 115 H 100 H 100 H Respiratory Rate 16 16 16 Blood Pressure 135/82 150/92 H Pulse Oximetry 98 99 01/18/18 00:00 01/18/18 00:02 01/18/18 03:27 Temperature 97.5 F L Pulse Rate 97 H 100 H 89 Respiratory Rate 16 17 17 Blood Pressure 138/88 Pulse Oximetry 99 01/18/18 04:00 01/18/18 07:35 01/18/18 08:04 Temperature 98.0 F 97.6 F Pulse Rate 92 H 78 78 Respiratory Rate 16 16 17 Blood Pressure 143/75 H 137/84 Pulse Oximetry 97 98 Intake & Output 01/17/18 01/18/18 01/18/18 18:59 06:59 18:59 Intake Total 200 / 200 Balance 200 / 200 Intake: IV 200 / 200 Ofirmev Inj 1,000 mg In 100 ml 100 / 100 @ 400 mls/hr IV.SIG Q6H JESSICA Rx# :[id number] Maxipime Inj 2,000 MG In NS Inj 100 / 100 100 ML @ 200 mls/hr IV.SIG Q12H JESSICA Rx#:[id number] Other: Date of Last Bowel Movement 01/17/18 01/17/18 01/17/18 Narrative: GENERAL: This is a well-nourished, well-developed patient, in no apparent distress. CARDIOVASCULAR: Regular rate and rhythm RESPIRATORY: Clear to auscultation. Breath sounds equal bilaterally. No wheezes , rales, or rhonchi. GASTROINTESTINAL: Abdomen soft, non-tender, nondistended. Normal active bowel sounds MUSCULOSKELETAL: Extremities without clubbing, cyanosis, or edema. NEURO: Alert & Oriented x4 to person, place, time, situation. Moves all ext x4 Results - Labs CBC & Chem 7: 01/15/18 05:15 01/15/18 05:15 Microbiology 01/14/18 19:25 Blood - Peripheral Aerobic Blood Culture - Preliminary No growth in 3 days 01/14/18 19:25 Blood - Peripheral Anaerobic Blood Culture - Preliminary No growth in 3 days 01/14/18 19:30 Blood - Peripheral Aerobic Blood Culture - Preliminary No growth in 3 days 01/14/18 19:30 Blood - Peripheral Anaerobic Blood Culture - Preliminary No growth in 3 days Assessment and Plan - Assessment (1) Elevated temperature Code(s): R50.9 - Fever, unspecified Status: Acute Plan: This a 52-year-old female patient with a past medical history which includes hypothyroidism, GERD and recent cholecystectomy December [address] Erickson. Patient reports postoperatively she had a fever for 11 days which resolved on its own. Then for approximately the past week she has been having fevers as high as 102.7 associated with a barking dry cough and hoarse voice. Patient had been given Augmentin on an outpatient basis with persistent symptoms. 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 CT scan abdomen/pelvis with IV contrast January 02, 2018 reviewed and reveals cholecystectomy changes without evidence of abscess or other acute complication MRCP January 07, 2018 done at [facility] conclusion essentially unremarkable study. Elevated temperature likely due to upper respiratory infection viral syndrome and dehydration Cough consistent with bronchospasm On arrival to the emergency department patient's temperature was 100.2 patient has remained afebrile since that point White blood cell count 8.4 repeat 5.7 no elevation in neutrophil Lactic acid 2.1 on admission repeat after hydration 1.1 likely due to dehydration rather than sepsis Elevated BUN of 21 with creatinine of 1.03 after hydration BUN 15 and 0.78 also likely due to dehydration Urinalysis reviewed negative leukocyte esterase negative protein negative nitrates no culture indicated Chest X-Ray 01/14/18 No acute cardiopulmonary disease. There is no evidence of pneumonia. Chest X-Ray 01/15/18 No acute cardiopulmonary disease identified. Blood cultures 2 (01/14/18) --> NGTD Influenza A and B negative - cefepime 2g IV (01/14 - 01/17) - continue solu medrol scheduled & prn - prn Robitussin AC - Tessalon pearls scheduled x 2 days - add budesonide NEB - continue duonebs - repeat CXR (01/17) No acute abnormality or significant interval change. - SCDs for supportive care - supportive care - CT neck and chest ordered Hypothyroidism continue patient's home levothyroxine 175 mcg p.o. daily Anxiety/depression Headache Continue patient's home amitriptyline 75 mg daily and Paxil 10 mg p.o. nightly DVT prophylaxis with SCDs
[2018-01-18] MEDS ORDERED: Azithromycin 250 MG Tablet PO ONE (13:25)
--- NOTE | 2018-01-18 16:08 | CT ---
EXAM DATE: 01/18/2018 3:32 PM EDT AGE/SEX: 52 years / Female INDICATIONS: Cough and throat irritation after gallbladder surgery 2 weeks ago CLINICAL DATA: This is the patient's initial encounter. Patient reports that signs and symptoms have been present for 1 day and indicates a pain score of 2/10. MEDICAL/SURGICAL HISTORY: None. Cholecystectomy. Thyroidectomy. RADIATION DOSE: 16.66 CTDI (mGy) COMPARISON: No prior exams available for comparison. TECHNIQUE: Helical acquisition was performed using a multirow detector CT scanner without contrast. Using automated exposure control and adjustment of the mA and/or kV according to patient size, radiat ion dose was kept as low as reasonably achievable to obtain optimal diagnostic quality images. DICOM format image data is available electronically for review and comparison. FINDINGS: There is no evidence for any appreciable pathological adenopathy in the patient's neck. The parotid glands, submandibular glands appear intact. Thyroid glands are absent surgically. There is a tiny head bcentimeter density in the right upper neck subcutaneous tissue at the level of C4-5 benign in appear ance may be a tiny lymph node. The visceral compartment is grossly intact without infiltrating mass. The visualized sinuses are clear. CONCLUSION: Unremarkable study. Electronically signed by: Damion Goins MD 01/18/2018 4:07 PM EDT
--- NOTE | 2018-01-18 16:41 | CT ---
EXAM DATE: 01/18/2018 3:34 PM EDT AGE/SEX: 52 years / Female INDICATIONS: Cough and throat irritation and bronchospasm after gallbladder surgery 2 weeks ago CLINICAL DATA: This is the patient's initial encounter. Patient reports that signs and symptoms have been present for 1 day and indicates a pain score of 2/10. MEDICAL/SURGICAL HISTORY: None. Cholecystectomy. RADIATION DOSE: 12.68 CTDI (mGy) COMPARISON: No prior exams available for comparison. TECHNIQUE: Multiple contiguous axial images were obtained through the chest without contrast. Image s were obtained in suspended respiration using multiple row detector helical technique. Using automa dwight exposure control and adjustment of the mA and/or kV according to patient size, radiation dose was kept as low as reasonably achievable to obtain optimal diagnostic quality images. DICOM format imag e data is available electronically for review and comparison. FINDINGS: Lungs: No consolidation or pneumothorax. No concerning pulmonary nodule is identified. Mediastinum: The heart and great vessels demonstrate no acute abnormality. No lymphadenopathy is id entified. There is minimal coronary artery calcification. Pleurae: No pleural effusion or pleural thickening. Axillae: No lymphadenopathy. Musculoskeletal: The bones and soft tissues demonstrate no acute abnormality. Other: The visualized upper abdominal structures demonstrate no acute abnormality. Cholecystectomy clips are present. There is no bile duct dilatation. Liver density is mildly increased. Subcutaneous fat stranding is present on the anterior abdominal wall in the midline likely related to the recent s urgery. No subdiaphragmatic fluid collection is present. CONCLUSION: 1. No abnormality is identified to explain the clinical symptoms. There are expected postsurgical ch anges along the midline anterior abdominal wall. 2. Otherwise, no acute finding is seen. There is minimal coronary artery calcification. Electronically signed by: Matthias Freitas MD 01/18/2018 4:39 PM EDT
[2018-01-18] MEDS: Phenol 1.4% 180 ML Spray Bottle OROPHARYNG PRN (17:12)
[2018-01-19] MEDS: MethylPREDNISolone Sod Succinate Inj 125 MG/2 ML Vial IV.PUSH SCH ×2 (02:20→08:28)
[2018-01-19] MEDS: guaiFENesin/Codeine Syrup 200 MG/20 MG 10 ML UDC PO PRN ×2 (02:24→08:50)
[2018-01-19] MEDS: Levothyroxine 100 MCG Tablet PO SCH (05:18)
[2018-01-19] MEDS: Levothyroxine 75 MCG Tablet PO SCH (05:18)
[2018-01-19] MEDS: Benzonatate 100 MG Capsule PO SCH (05:19)
[2018-01-19] MEDS: Senna/Docusate Sodium 8.6/50 MG Tablet PO SCH (08:30)
[2018-01-19] MEDS ORDERED: Azithromycin 250 MG Tablet PO SCH (09:00)
[2018-01-19 11:23] VITALS: BP 144/87; TEMP 98.4; O2SAT 97
[2018-01-19 11:52] VITALS: PULSE 78; RESP 18
--- NOTE | 2018-01-19 12:15 | P.DS ---
<Josette Matos E - Last Filed: 01/19/18 12:02> Date of admission: 01/14/18 21:00 Primary care physician: UNKNOWN Attending physician on discharge: Timmy Baez Anticipated date of discharge: 01/19/18 Brief History from admission: This a 52-year-old female patient with a past medical history which includes hypothyroidism, GERD and recent cholecystectomy December [address] Erickson. Patient reports postoperatively she had a fever for 11 days which resolved on its own. Then for approximately the past week she has been having fevers as high as 102.0 associated with a barking dry cough and hoarse voice. Patient had been given Augmentin on an outpatient basis with persistent symptoms. 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 Past medical history Hypothyroidism, GERD Past surgical history cholecystectomy December 28, 2017, colonoscopy, EGD with biopsy, polypectomy Social history denies EtOH use or tobacco use Family medical history reviewed and noncontributory DS: Diagnosis - Discharge Diagnosis (1) Post-infection bronchospasm Status: Acute (2) Elevated temperature Status: Acute DS: Medications - Discharge Medications Prescriptions: albuterol sulfate 2.5 mg INHALATION QID #60 each azithromycin 250 mg PO DAILY 4 Days #4 tab fluticasone-salmeterol [AirDuo RespiClick] 1 puff INHALATION Q12H #1 ea ipratropium bromide 0.5 mg INHALATION Q6H #60 ml prednisone See Taper PO DIRECTED #18 tab DS: Summary Hospital Course: Elevated temperature likely due to upper respiratory infection viral syndrome and dehydration Cough consistent with bronchospasm - This a 52-year-old female patient with a past medical history which includes hypothyroidism, GERD and recent cholecystectomy December [address] Erickson. Patient reports postoperatively she had a fever for 11 days which resolved on its own. Then for approximately the past week she has been having fevers as high as 102.7 associated with a barking dry cough and hoarse voice. Patient had been given Augmentin on an outpatient basis with persistent symptoms. 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 On arrival to the emergency department patient's temperature was 100.2 patient has remained afebrile since that point. White blood cell count 8.4 repeat 5.7 no elevation in neutrophil. Lactic acid was 2.1 on admission repeat after hydration improved to 1.1, felt to likely be due to dehydration rather than sepsis. Initially elevated BUN of 21 with creatinine of 1.03 improved after hydration to BUN 15 and 0.78 also likely due to dehydration. Urinalysis reviewed negative leukocyte esterase negative protein negative nitrates no culture indicated. - Chest X-Ray 01/14/18 --> No acute cardiopulmonary disease. There is no evidence of pneumonia. - Chest X-Ray 01/15/18 --> No acute cardiopulmonary disease identified. - Chest X-Ray 01/17/18 --> No acute abnormality or significant interval change. - Chest CT 01/18/18 --> No abnormality is identified to explain the clinical symptoms. There are expected postsurgical changes along the midline anterior abdominal wall. Otherwise, no acute finding is seen. There is minimal coronary artery calcification. - Soft Tissue Neck CT 01/18/18 --> Unremarkable study. Blood cultures 2 (01/14/18) --> NGTD. Influenza A and B negative. Pt was given cefepime 2g IV (01/14 - 01/17) and changed to Azithromycin which will be continued upon discharge x 4 more days. Pt was treated with Solu-Medrol scheduled & prn. Pt will be given a Prednisone taper upon discharge. She can continued Robitussin AC PRN. Pt was given budesonide NEB but this cannot be continued upon discharge so she was written a prescription for AirDuo Respiclick BID. She will continue duonebs Q4H PRN and nebulizer was ordered for the pt. Pt requested to be seen by Pulmonary prior to discharge. The case was discussed with Dr. Salinas and he will see the pt prior to discharge and then have her followup with him as an outpt in 2 weeks. s/p cholecystectomy - CT scan abdomen/pelvis with IV contrast January 02, 2018 revealed cholecystectomy changes without evidence of abscess or other acute complication - MRCP January 07, 2018 done at [facility] conclusion essentially unremarkable study. Hypothyroidism - Continue patient's home levothyroxine 175 mcg p.o. daily Anxiety/depression Headache - Continue patient's home amitriptyline 75 mg daily and Paxil 10 mg p.o. nightly - Time Spent with Patient Total time spent providing and/or coordinating discharge services: - Quality: VTE Deep Vein Thrombosis/Pulmonary Embolism Present on Admission: No Exam Vital signs: Vital Signs 01/18/18 13:27 01/18/18 15:36 01/18/18 16:07 Temperature 97.6 F Pulse Rate 78 87 Respiratory Rate 18 16 17 Blood Pressure 134/78 Pulse Oximetry 96 01/18/18 19:32 01/18/18 19:34 01/18/18 23:48 Temperature 98.3 F Pulse Rate 99 H 96 H 78 Respiratory Rate 18 18 18 Blood Pressure 146/91 H Pulse Oximetry 100 01/19/18 00:00 01/19/18 03:22 01/19/18 04:00 Temperature 97.6 F 97.6 F Pulse Rate 84 71 86 Respiratory Rate 16 16 15 Blood Pressure 143/86 H 169/92 H Pulse Oximetry 97 96 01/19/18 07:27 01/19/18 07:35 01/19/18 11:20 Temperature 97.7 F 98.4 F Pulse Rate 84 81 103 H Respiratory Rate 18 20 16 Blood Pressure 156/78 H 144/87 H Pulse Oximetry 99 96 97 01/19/18 11:51 Temperature Pulse Rate 78 Respiratory Rate 18 Blood Pressure Pulse Oximetry Intake & Output 01/18/18 01/19/18 01/19/18 18:59 06:59 18:59 Other: Date of Last Bowel Movement 01/17/18 01/17/18 Narrative: GENERAL: NAD, AAOx3 CARDIO: Regular rate and rhythm without murmurs, gallops, or rubs. RESP: Breath sounds equal bilaterally. No accessory muscle use. ABD: Abdomen soft, non-tender, nondistended. EXT: No cyanosis, or edema. Results Procedures completed during hospitalization: None - Impressions ITS Impressions Chest X-Ray 01/17/18 07:23 CONCLUSION: 1. No acute abnormality or significant interval change. Chest CT 01/18/18 00:00 CONCLUSION: 1. No abnormality is identified to explain the clinical symptoms. There are expected postsurgical changes along the midline anterior abdominal wall. 2. Otherwise, no acute finding is seen. There is minimal coronary artery calcification. Soft Tissue Neck CT 01/18/18 00:00 CONCLUSION: Unremarkable study. <Timym Baez - Last Filed: 01/19/18 12:18> Date of admission: 01/14/18 21:00 Primary care physician: UNKNOWN DS: Summary - Time Spent with Patient Total time spent providing and/or coordinating discharge services: Greater than 30 minutes Exam Vital signs: Vital Signs 01/18/18 13:27 01/18/18 15:36 01/18/18 16:07 Temperature 97.6 F Pulse Rate 78 87 Respiratory Rate 18 16 17 Blood Pressure 134/78 Pulse Oximetry 96 01/18/18 19:32 01/18/18 19:34 01/18/18 23:48 Temperature 98.3 F Pulse Rate 99 H 96 H 78 Respiratory Rate 18 18 18 Blood Pressure 146/91 H Pulse Oximetry 100 01/19/18 00:00 01/19/18 03:22 01/19/18 04:00 Temperature 97.6 F 97.6 F Pulse Rate 84 71 86 Respiratory Rate 16 16 15 Blood Pressure 143/86 H 169/92 H Pulse Oximetry 97 96 01/19/18 07:27 01/19/18 07:35 01/19/18 11:20 Temperature 97.7 F 98.4 F Pulse Rate 84 81 103 H Respiratory Rate 18 20 16 Blood Pressure 156/78 H 144/87 H Pulse Oximetry 99 96 97 01/19/18 11:51 Temperature Pulse Rate 78 Respiratory Rate 18 Blood Pressure Pulse Oximetry Intake & Output 01/18/18 01/19/18 01/19/18 18:59 06:59 18:59 Other: Date of Last Bowel Movement 01/17/18 01/17/18 Results - Impressions ITS Impressions Chest X-Ray 01/17/18 07:23 CONCLUSION: 1. No acute abnormality or significant interval change. Chest CT 01/18/18 00:00 CONCLUSION: 1. No abnormality is identified to explain the clinical symptoms. There are expected postsurgical changes along the midline anterior abdominal wall. 2. Otherwise, no acute finding is seen. There is minimal coronary artery calcification. Soft Tissue Neck CT 01/18/18 00:00 CONCLUSION: Unremarkable study. Discharge Plan - Discharge Order Discharge Orders: Discharge Order (Routine); Ordered 01/19/18 Ordered By: Josette Matos - Discharge Details Anticipated Discharge Date: 01/19/18 Discharge Comment: Pt can be discharged after she is seen by Dr. Salinas this evening. - Physicians Team Primary Care Provider: UNKNOWN, Attending Provider: Washington Alexander Other Providers: Zen Salinas MD
--- NOTE | 2018-01-19 17:20 | MB ---
cc: Zen Salinas MD DATE: 01/19/2018 REQUESTING PHYSICIAN: Dr. Timmy Baez REASON FOR CONSULTATION: Persistent cough. HISTORY OF PRESENT ILLNESS: Ms. Niño is a 52-year-old white female with a history of hypothyroidism, history of goiter, status post surgery, history of GERD. She had a cholecystectomy done on 12/28/2017. Four days later, she started having fever. She took some antibiotic, was seen in the emergency room and also at the urgent care center and followed by her surgeon, Dr. Erickson. She is having persistent cough going on for the last 2-3 weeks. Cough is worse when she talks and worse when she sleeps. No significant wheezing. No recent fever or chills. No night sweats. No chest pain. No history of any asthma or emphysema. The patient worked up in the hospital. She had a CT scan of the chest done which shows no acute cardiopulmonary process to explain her cough. She has post-surgical changes along the mid abdominal wall. She had a CT scan of the soft tissue of the neck, which was unremarkable. CBC showed WBC count 5.7, hemoglobin 11.2, hematocrit 34.1, MCV 85, platelet count 305. Sodium 143, potassium 3.8, chloride 112, CO2 20, BUN 15, creatinine 0.78. PAST MEDICAL HISTORY: History of goiter surgery, hypothyroidism and cholecystectomy. MEDICATIONS: She is currently takin. Tylenol. 2. Albuterol. 3. Atrovent nebulizer treatment. 4. Effexor 75 mg. 5. Zithromax 250 mg. 6. Budesonide nebulizer treatment. 7. Robitussin-AC cough syrup. 8. Levothyroxine 75 mcg. 9. Solu-Medrol 60 mg XL. 10. Paxil 10 mg. 11. Chloraseptic throat lozenges. ALLERGIES: SHE IS ALLERGIC TO IODINE. She had problem with codeine, but is tolerating it well. 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 She has no history of smoking or alcohol use. FAMILY HISTORY: Her recently . She has grown 2 [place] REVIEW OF SYSTEMS: No history of DM . No history of asthma. No seizures or stroke. PHYSICAL EXAMINATION: GENERAL: Well-developed well-nourished male in moderate discomfort because of persistent cough. VITAL SIGNS: Blood pressure 144/87, heart rate 103, respirations 16, temperature 98.4. HEENT: Pupils are equal and reactive to light. Oral mucosa and nasal mucosa normal. NECK: Supple. JVP not raised. CHEST: Right. CARDIOVASCULAR: S1 and S2 normal. ABDOMEN: benign. IMPRESSION: 1. Persistent cough, likely postinflammatory reactive airway disease, likely asthma. She has no history of asthma in the past. 2. Recent cholecystectomy. 3. Hypertension. 4. Hypothyroidism. 5. Anxiety disorder. PLAN: I discussed with the patient and explained the CT scan findings, that there is no acute process going on. I encouraged her to use throat lozenges or cough drops. She will be maintained on p.o. antibiotics, p.o. steroids and Pulmicort inhaler; however, she is stable to be discharged and will have her follow up in the office and if needed, we will plan to get a pulmonary function study. Further treatment will depend on the course in the hospital. Thank you, Dr. Baez, for this consult. MD TAMIR Camacho/ct/sebastien , 02:48 PM , 03:03 PM MTDD
== END 2018-01-19 16:42 | disposition home or self-care (01) ==
LOC: NEPFCDU 18:01 → NEPC 18:01 → NEDA 18:01 → NEPFCDU 21:51
PROVIDERS: ADMIT Hospitalist; ATTEND Hospitalist